=== PATIENT | female | born 1965 | race African-American/Black ===

== ENCOUNTER 2017-03-14 12:42 | Outpatient (CLI) ==
[2016-03-15 17:52] VITALS: BMI 29.7
== END 2017-03-14 12:43 | disposition home or self-care (01) ==
LOC: RAD 12:42
PROVIDERS: ATTEND Nurse Practitioner
DX: Z12.31 Encounter for screening mammogram for malignant neoplasm of breast (principal)
CPT/HCPCS: 77067